=== PATIENT | male | born 1955 ===

== ENCOUNTER 2024-05-31 03:28 | Inpatient (IN) | payer OTHER ==
[2024-05-31 03:47] VITALS: BMI 27.1
[2024-05-31] MEDS ORDERED: VANCOMYCIN ONE (04:21)
[2024-05-31] MEDS ORDERED: PIPERACILLIN/TAZOB 3.375 GM 3.375 GM/50 ML BAG IVPB ONE (04:21)
[2024-05-31] MEDS ORDERED: ACETAMINOPHEN INJECTION 100 ML ONE (04:21)
[2024-05-31 04:58] LABS: BASO % 0.2 % (0-2.0); EOS % 0.2 % (0-4.5); HEMATOCRIT 32.7 % (35.4-49); HEMOGLOBIN 10.5 GM/dL (11.7-16.9); LYMPH % 14.2 % (8-40); MCH 31.7 pg (25.7-33.7); MCHC 32.3 g/dl (32.0-35.9); MEAN CELL VOLUME 98.1 fl (80-96); MEAN PLT VOLUME 7.6 fl (7.5-11.1); MONO % 8.3 % (3.8-10.2); NEUT % 77.1 % (42.8-82.8); PLATELET COUNT 362 10^3/uL (134-434); RBC 3.33 M/mm3 (4.00-5.60); RDW 16.1 % (11.9-15.9); WHITE BLOOD COUNT 10.4 K/mm3 (4.0-10.0)
[2024-05-31 04:59] LABS: VENOUS O2 SATURATION 80.8 % (70-80); VENOUS PCO2 40.1 mmHg (38-52); VENOUS PH 7.391 (7.310-7.410)
[2024-05-31] MEDS: ACETAMINOPHEN 1000 MG/100 ML BAG IVPB ONE ×2 (05:12→23:27)
[2024-05-31 05:22] LABS: POTASSIUM 3.9 mmol/L (3.5-5.1)
[2024-05-31 05:24] LABS: ALBUMIN 3.2 g/dl (3.4-5.0); BLOOD UREA NITROGEN 51.3 mg/dL (7-18); CALCIUM 9.2 mg/dL (8.5-10.1)
[2024-05-31 05:28] LABS: CREATININE 2.4 mg/dL (0.55-1.3)
[2024-05-31] MEDS: PIPERACILLIN/TAZOB 3.375 GM 3.375 GM in DEXTROSE 5%-WATER - 50 ML IVPB ONE (05:28)
[2024-05-31 05:29] LABS: TOT PROT 8.6 g/dl (6.4-8.2)
[2024-05-31 05:32] LABS: N-TERMINAL BNP 474.4 pg/ml (5-125)
[2024-05-31 05:36] LABS: BILIRUBIN,TOTAL 0.8 mg/dL (0.2-1)
[2024-05-31 05:40] LABS: INR 1.4 (0.83-1.09); PROTHROMBIN TIME (PATIENT) 15.9 SEC (9.7-13.0)
[2024-05-31 05:43] LABS: ACTIVATED PTT 30.4 SECONDS (25.2-36.5)
[2024-05-31] MEDS: VANCOMYCIN 1,000 MG in DEXTROSE 5%-WATER - 250 ML IVPB ONE (07:30)
[2024-05-31] MEDS ORDERED: VANCOMYCIN 1 GM PREMIX (F) 1 GM/200 ML BAG ONE (07:35)
[2024-05-31] MEDS ORDERED: MORPHINE SULFATE 2 MG/ML SYRINGE ONE (08:28)
[2024-05-31] MEDS: morphine CARPU-JECT 2 MG/1 ML DISP.SYRIN IVPUSH ONE (08:31)
[2024-05-31 08:33] LABS: URINE APPEARANCE TURBID; URINE BILIRUBIN NEGATIVE (NEGATIVE); URINE COLOR ORANGE; URINE GLUCOSE (UA) NEGATIVE (NEGATIVE); URINE KETONE TRACE (NEGATIVE); URINE LEUK ESTERASE 2+ (NEGATIVE); URINE NITRITE NEGATIVE (NEGATIVE); URINE PROTEIN 3+ (NEGATIVE)
[2024-05-31 09:21] LABS: EPI CELLS 20 /uL (0-25.1); HYALINE CASTS 7 /uL (0-3.1); URINE BACTERIA 33 /uL (0-1359); URINE CRYSTALS NONE SEEN /hpf; URINE RBC 1200 /uL (0-23.9); URINE WBC 440 /uL (0-25.8)
[2024-05-31 09:22] LABS: YEAST PRESENT (NEGATIVE)
[2024-05-31] MEDS: LACTATED RINGERS SOLUTION 1,000 ML/1,000 ML INFUS.BAG IV SCH ×2 (13:50→14:21)
[2024-05-31] MEDS: HEPARIN NA (PORCINE) 5,000 UNITS/ML 1ML VIAL SQ SCH (13:50)
[2024-05-31] MEDS: LIDOCAINE 4% PATCH TP SCH (13:51)
[2024-05-31] MEDS: METOPROLOL TARTRATE 5 MG/5 ML VIAL IVPUSH PRN (13:58)
[2024-05-31] MEDS: METOPROLOL TARTRATE 25 MG TABLET (FP) PO SCH (14:21)
[2024-05-31] MEDS: SODIUM CHLORIDE 500 ML IV STA (14:22)
[2024-05-31] MEDS: PIPERACILLIN/TAZOB 3.375 GM 50 ML IVPB SCH (17:46)
[2024-05-31] MEDS ORDERED: PIPERACILLIN IVPB SCH (18:00)
[2024-05-31] MEDS ORDERED: TAZOB IVPB SCH (18:00)
[2024-05-31] MEDS: OSELTAMIVIR PHOSPHATE 75 MG CAPSULE PO SCH (20:06)
[2024-05-31] MEDS: DOCUSATE SODIUM 100 MG CAPSULE (FP) PO SCH (21:15)
[2024-05-31] MEDS: LIDOCAINE PATCH REMOVAL MC SCH (21:15)
[2024-05-31] MEDS ORDERED: ZOLPIDEM TARTRATE 5 MG TABLET PO PRN (22:00)
[2024-05-31] MEDS ORDERED: APIXABAN 5 MG TABLET PO SCH (22:00)
[2024-06-01] MEDS: METOPROLOL TARTRATE 5 MG/5 ML VIAL IVPUSH ONE
[2024-06-01 08:11] LABS: BASO % 0.4 % (0-2.0); EOS % 0.1 % (0-4.5); HEMATOCRIT 31.9 % (35.4-49); HEMOGLOBIN 10.3 GM/dL (11.7-16.9); LYMPH % 17.2 % (8-40); MCHC 32.3 g/dl (32.0-35.9); MEAN CELL VOLUME 99.2 fl (80-96); MEAN PLT VOLUME 7.8 fl (7.5-11.1); MONO % 8.4 % (3.8-10.2); NEUT % 73.9 % (42.8-82.8); PLATELET COUNT 407 10^3/uL (134-434); RBC 3.22 M/mm3 (4.00-5.60); WHITE BLOOD COUNT 10.9 K/mm3 (4.0-10.0)
[2024-06-01] MEDS: morphine CARPU-JECT 4 MG/1 ML DISP.SYRIN IVPUSH ONE ×2 (08:12→08:25)
[2024-06-01] MEDS: NITROGLYCERIN 2% OINTMENT - 1GM PACKET TD ONE (08:12)
[2024-06-01 08:32] LABS: POTASSIUM 3.8 mmol/L (3.5-5.1)
[2024-06-01 08:39] LABS: BLOOD UREA NITROGEN 56.5 mg/dL (7-18); CALCIUM 9.3 mg/dL (8.5-10.1)
[2024-06-01 08:43] LABS: CREATININE 2.1 mg/dL (0.55-1.3)
[2024-06-01] MEDS: ACETAMINOPHEN 500 MG TABLET (FP) PO PRN (09:46)
[2024-06-01] MEDS: ASPIRIN COATED 81 MG TABLET.EC PO SCH (09:47)
[2024-06-01] MEDS: DULoxetine HCL 30 MG CAPSULE.DR PO SCH (09:47)
[2024-06-01] MEDS: TAMSULOSIN HCL 0.4 MG CAP PO SCH (09:47)
[2024-06-01] MEDS: APIXABAN 5 MG TABLET PO SCH (12:57)
[2024-06-01] MEDS: SILVER SULFADIAZINE 1% TOP CREAM 400 GM JAR TP SCH (12:58)
[2024-06-01] MEDS ORDERED: MIRTAZAPINE 15 MG TABLET (FP) PO SCH (22:00)
[2024-06-01] MEDS: PIPERACILLIN/TAZOB 4.5 GM 4.5 GM/100 ML BAG IVPB SCH (22:40)
[2024-06-01] MEDS: LIDOCAINE PATCH REMOVAL MC SCH (22:40)
[2024-06-02 08:01] LABS: HEMATOCRIT 30.8 % (35.4-49); HEMOGLOBIN 9.9 GM/dL (11.7-16.9); MCHC 32.3 g/dl (32.0-35.9); MEAN PLT VOLUME 7.5 fl (7.5-11.1); PLATELET COUNT 363 10^3/uL (134-434); RBC 3.11 M/mm3 (4.00-5.60); RDW 16.1 % (11.9-15.9); WHITE BLOOD COUNT 10.3 K/mm3 (4.0-10.0)
[2024-06-02 08:17] LABS: POTASSIUM 3.6 mmol/L (3.5-5.1)
[2024-06-02 08:20] LABS: CALCIUM 9.3 mg/dL (8.5-10.1)
[2024-06-02 08:21] LABS: BLOOD UREA NITROGEN 51.3 mg/dL (7-18); MAGNESIUM 1.9 mg/dL (1.8-2.4)
[2024-06-02 08:23] LABS: CREATININE 1.7 mg/dL (0.55-1.3); PHOSPHOROUS 3.9 mg/dL (2.5-4.9)
[2024-06-02 08:26] LABS: BILIRUBIN,TOTAL 0.7 mg/dL (0.2-1); TOT PROT 7.7 g/dl (6.4-8.2)
[2024-06-02] MEDS: DULoxetine HCL 30 MG CAPSULE.DR PO SCH (09:28)
[2024-06-02] MEDS: TAMSULOSIN HCL 0.4 MG CAP PO SCH (09:29)
[2024-06-02] MEDS: ASPIRIN COATED 81 MG TABLET.EC PO SCH (09:29)
[2024-06-02] MEDS ORDERED: DOXYCYCLINE INJECTION 100 MG in DEXTROSE 5%-WATER 100 ML IVPB SCH (10:00)
[2024-06-02] MEDS ORDERED: CEFTRIAXONE 1 GM in DEXTROSE 5%-WATER - 50 ML IVPB SCH (10:00)
[2024-06-02] MEDS: VANCOMYCIN 1 GM PREMIX (F) 1 GM/200 ML BAG IVPB ONE (12:15)
[2024-06-02] MEDS: ISOSORBIDE MONONITRATE 30 MG TAB.SR.24H (FP) PO SCH ×2 (14:54→22:12)
[2024-06-02] MEDS: METOPROLOL TARTRATE 5 MG/5 ML VIAL IVPUSH PRN (14:54)
[2024-06-02] MEDS: ATORVASTATIN CA 10 MG TABLET (FP) PO SCH (22:12)
[2024-06-02] MEDS: PANTOPRAZOLE 40 MG TABLET PO SCH (22:12)
[2024-06-03] MEDS: ACETAMINOPHEN 1000 MG/100 ML BAG IVPB ONE (02:33)
[2024-06-03 06:47] LABS: HEMATOCRIT 25.4 % (35.4-49); HEMOGLOBIN 8.2 GM/dL (11.7-16.9); MCH 32.2 pg (25.7-33.7); MCHC 32.4 g/dl (32.0-35.9); MEAN CELL VOLUME 99.4 fl (80-96); MEAN PLT VOLUME 7.8 fl (7.5-11.1); PLATELET COUNT 336 10^3/uL (134-434); RBC 2.56 M/mm3 (4.00-5.60); RDW 15.5 % (11.9-15.9); WHITE BLOOD COUNT 9.6 K/mm3 (4.0-10.0)
[2024-06-03 07:34] LABS: POTASSIUM 3.5 mmol/L (3.5-5.1)
[2024-06-03 07:39] LABS: ALBUMIN 2.5 g/dl (3.4-5.0)
[2024-06-03 07:40] LABS: BLOOD UREA NITROGEN 43.8 mg/dL (7-18); CALCIUM 8.7 mg/dL (8.5-10.1)
[2024-06-03 07:43] LABS: CREATININE 1.4 mg/dL (0.55-1.3)
[2024-06-03 07:44] LABS: BILIRUBIN,TOTAL 0.8 mg/dL (0.2-1); TOT PROT 6.6 g/dl (6.4-8.2)
[2024-06-03] MEDS: LACTATED RINGERS SOLUTION 1,000 ML/1,000 ML INFUS.BAG IV SCH (17:00)
[2024-06-03] MEDS: ACETAMINOPHEN 500 MG TABLET (FP) PO PRN (21:15)
[2024-06-03] MEDS: METOPROLOL TARTRATE 25 MG TABLET (FP) PO SCH (21:15)
[2024-06-04 07:21] LABS: HEMATOCRIT 26.8 % (35.4-49); HEMOGLOBIN 8.5 GM/dL (11.7-16.9); MCH 31.8 pg (25.7-33.7); MCHC 31.7 g/dl (32.0-35.9); MEAN CELL VOLUME 100.3 fl (80-96); MEAN PLT VOLUME 7.8 fl (7.5-11.1); PLATELET COUNT 343 10^3/uL (134-434); RBC 2.67 M/mm3 (4.00-5.60); RDW 15.7 % (11.9-15.9); WHITE BLOOD COUNT 7.8 K/mm3 (4.0-10.0)
[2024-06-04 07:39] LABS: POTASSIUM 3.5 mmol/L (3.5-5.1)
[2024-06-04 07:43] LABS: ALBUMIN 2.5 g/dl (3.4-5.0); CALCIUM 9.1 mg/dL (8.5-10.1)
[2024-06-04 07:44] LABS: BLOOD UREA NITROGEN 35.5 mg/dL (7-18); MAGNESIUM 1.5 mg/dL (1.8-2.4)
[2024-06-04 07:47] LABS: CREATININE 1.2 mg/dL (0.55-1.3)
[2024-06-04 07:48] LABS: BILIRUBIN,TOTAL 0.7 mg/dL (0.2-1); TOT PROT 6.6 g/dl (6.4-8.2)
[2024-06-04] MEDS: LIDOCAINE PATCH REMOVAL MC SCH (21:45)
[2024-06-05 07:33] LABS: HEMOGLOBIN 8.7 GM/dL (11.7-16.9); MCH 32.3 pg (25.7-33.7); MCHC 32.1 g/dl (32.0-35.9); MEAN CELL VOLUME 100.8 fl (80-96); MEAN PLT VOLUME 7.9 fl (7.5-11.1); PLATELET COUNT 315 10^3/uL (134-434); RBC 2.68 M/mm3 (4.00-5.60); RDW 15.4 % (11.9-15.9)
[2024-06-05 08:06] LABS: POTASSIUM 3.4 mmol/L (3.5-5.1)
[2024-06-05 08:29] LABS: CALCIUM 8.9 mg/dL (8.5-10.1)
[2024-06-05 08:30] LABS: ALBUMIN 2.6 g/dl (3.4-5.0); BLOOD UREA NITROGEN 29.2 mg/dL (7-18); MAGNESIUM 1.5 mg/dL (1.8-2.4)
[2024-06-05 08:34] LABS: BILIRUBIN,TOTAL 0.6 mg/dL (0.2-1); TOT PROT 6.7 g/dl (6.4-8.2)
[2024-06-05] MEDS: LIDOCAINE 5% TOPICAL PATCH TP SCH (10:35)
[2024-06-05] MEDS: MAGNESIUM SULF 50% (8.12 MEQ/2 ML-1 GM VIAL) IVPB ONE (21:38)
[2024-06-05] MEDS: POTASSIUM CHLORIDE TABS 20 MEQ TABLET.ER (FP) PO ONE (21:39)
[2024-06-06 07:20] LABS: HEMATOCRIT 27.9 % (35.4-49); HEMOGLOBIN 8.9 GM/dL (11.7-16.9); MCH 32.3 pg (25.7-33.7); MCHC 31.9 g/dl (32.0-35.9); MEAN CELL VOLUME 101.3 fl (80-96); MEAN PLT VOLUME 7.9 fl (7.5-11.1); PLATELET COUNT 298 10^3/uL (134-434); RBC 2.75 M/mm3 (4.00-5.60); RDW 15.7 % (11.9-15.9); WHITE BLOOD COUNT 6.8 K/mm3 (4.0-10.0)
[2024-06-06 07:41] LABS: POTASSIUM 3.5 mmol/L (3.5-5.1)
[2024-06-06 07:52] LABS: ALBUMIN 2.6 g/dl (3.4-5.0); BLOOD UREA NITROGEN 23.4 mg/dL (7-18); CALCIUM 9.3 mg/dL (8.5-10.1)
[2024-06-06 07:53] LABS: MAGNESIUM 1.6 mg/dL (1.8-2.4)
[2024-06-06 07:56] LABS: PHOSPHOROUS 2.3 mg/dL (2.5-4.9)
[2024-06-06 07:57] LABS: BILIRUBIN,TOTAL 0.6 mg/dL (0.2-1); TOT PROT 6.7 g/dl (6.4-8.2)
[2024-06-06] MEDS: hydrALAZINE HCL 20 MG/ML VIAL IVPUSH ONE (10:40)
[2024-06-06] MEDS: oxyCODONE HCL 5 MG TABLET PO PRN (17:22)
[2024-06-07 06:50] LABS: HEMATOCRIT 27.6 % (35.4-49); HEMOGLOBIN 8.8 GM/dL (11.7-16.9); MCH 31.8 pg (25.7-33.7); MEAN CELL VOLUME 99.3 fl (80-96); MEAN PLT VOLUME 8.6 fl (7.5-11.1); PLATELET COUNT 289 10^3/uL (134-434); RBC 2.77 M/mm3 (4.00-5.60); RDW 15.2 % (11.9-15.9); WHITE BLOOD COUNT 7.1 K/mm3 (4.0-10.0)
[2024-06-07 07:14] LABS: POTASSIUM 3.3 mmol/L (3.5-5.1)
[2024-06-07 07:16] LABS: BLOOD UREA NITROGEN 19.2 mg/dL (7-18); MAGNESIUM 1.5 mg/dL (1.8-2.4)
[2024-06-07 07:17] LABS: ALBUMIN 2.6 g/dl (3.4-5.0)
[2024-06-07 07:19] LABS: CREATININE 0.8 mg/dL (0.55-1.3)
[2024-06-07 07:20] LABS: PHOSPHOROUS 2.1 mg/dL (2.5-4.9)
[2024-06-07 07:21] LABS: BILIRUBIN,TOTAL 0.4 mg/dL (0.2-1); TOT PROT 6.7 g/dl (6.4-8.2)
[2024-06-07] MEDS: MAGNESIUM OXIDE 400 MG TABLET (FP) PO ONE (10:12)
[2024-06-07] MEDS: POTASSIUM PHOSPHATE 30 MM in SODIUM CHLORIDE 500 ML IVPB ONE (10:29)
[2024-06-07] MEDS: LISINOPRIL 5 MG TABLET PO SCH (10:29)
[2024-06-07] MEDS: oxyCODONE HCL 5 MG TABLET PO PRN (15:59)
[2024-06-07 18:42] VITALS: RESP 20
[2024-06-07 19:31] VITALS: BP 145/76
[2024-06-07 19:50] VITALS: TEMP 99.6
[2024-06-07 19:51] VITALS: PULSE 108
== END 2024-06-07 20:00 | DRG 720 ==
LOC: JER 03:28 → JERBED 09:16 → J2W 12:53
PROVIDERS: ADMIT Internal Medicine; ATTEND Internal Medicine
DX: A41.9 Sepsis, unspecified organism (principal); G93.41 Metabolic encephalopathy; I13.2 Hypertensive heart and chronic kidney disease with heart failure and with stage 5 chronic kidney disease, or end stage renal disease; J18.9 Pneumonia, unspecified organism; N18.6 End stage renal disease; E11.22 Type 2 diabetes mellitus with diabetic chronic kidney disease; I48.91 Unspecified atrial fibrillation; F03.90 Unspecified dementia, unspecified severity, without behavioral disturbance, psychotic disturbance, mood disturbance, and anxiety; I50.22 Chronic systolic (congestive) heart failure; E11.51 Type 2 diabetes mellitus with diabetic peripheral angiopathy without gangrene; L97.319 Non-pressure chronic ulcer of right ankle with unspecified severity; E03.9 Hypothyroidism, unspecified; E78.5 Hyperlipidemia, unspecified; E86.0 Dehydration; E87.6 Hypokalemia; F32.A Depression, unspecified; I25.10 Atherosclerotic heart disease of native coronary artery without angina pectoris; I73.9 Peripheral vascular disease, unspecified; J11.1 Influenza due to unidentified influenza virus with other respiratory manifestations; M94.0 Chondrocostal junction syndrome [Tietze]; N20.0 Calculus of kidney; R47.81 Slurred speech; Z99.2 Dependence on renal dialysis
CPT/HCPCS: 0241U-QW; 36415; 70450-TC; 71045-TC-FY; 71250-TC; 73030-TC-LT-FY; 74176-TC; 76705-TC; 80048; 80053; 81003; 82803; 82962; 83605; 83735; 83880; 84100; 84439; 84443; 84484; 85025; 85027; 85610; 85730; 87040; 87077; 87086; 87481; 93005; 93010; 99285-25; G0480; J0131; J1644

== ENCOUNTER 2024-07-18 16:17 | Inpatient (IN) | payer OTHER ==
[2024-07-18 17:21] LABS: VENOUS O2 SATURATION 40.4 % (70-80); VENOUS PCO2 45.4 mmHg (38-52); VENOUS PH 7.202 (7.310-7.410)
[2024-07-18 17:29] LABS: BASO % 0.6 % (0-2.0); HEMATOCRIT 28.9 % (35.4-49); HEMOGLOBIN 8.6 GM/dL (11.7-16.9); LYMPH % 2.5 % (8-40); MCH 28.9 pg (25.7-33.7); MCHC 29.9 g/dl (32.0-35.9); MEAN CELL VOLUME 96.6 fl (80-96); MEAN PLT VOLUME 9.6 fl (7.5-11.1); MONO % 4.5 % (3.8-10.2); NEUT % 92.4 % (42.8-82.8); PLATELET COUNT 263 10^3/uL (134-434); RBC 2.99 M/mm3 (4.00-5.60); RDW 16.4 % (11.9-15.9); WHITE BLOOD COUNT 17.3 K/mm3 (4.0-10.0)
[2024-07-18 17:56] LABS: LACTIC ACID 3.4 mmol/L (0.4-2.0)
[2024-07-18 17:58] LABS: POTASSIUM 3.8 mmol/L (3.5-5.1)
[2024-07-18] MEDS ORDERED: PIPERACILLIN/TAZOB 3.375 GM 3.375 GM/50 ML BAG IVPB ONE (17:59)
[2024-07-18 18:00] LABS: CALCIUM 8.7 mg/dL (8.5-10.1)
[2024-07-18 18:01] LABS: ALBUMIN 2.2 g/dl (3.4-5.0); BLOOD UREA NITROGEN 89.5 mg/dL (7-18)
[2024-07-18 18:04] LABS: CREATININE 3.7 mg/dL (0.55-1.3)
[2024-07-18 18:05] LABS: BILIRUBIN,TOTAL 0.4 mg/dL (0.2-1); TOT PROT 7.1 g/dl (6.4-8.2)
[2024-07-18] MEDS: SODIUM CHLORIDE 1,000 ML IV STA ×2 (18:06→21:07)
[2024-07-18] MEDS: PIPERACILLIN/TAZOB 3.375 GM 3.375 GM in DEXTROSE 5%-WATER - 50 ML IVPB ONE (18:06)
[2024-07-18 18:09] LABS: INR 2.99 (0.83-1.09); PROTHROMBIN TIME (PATIENT) 32.9 SEC (9.7-13.0)
[2024-07-18 18:14] LABS: ANISOCYTOSIS 1+; MACROCYTOSIS 0; OVALOCYTE 1+
[2024-07-18 18:25] LABS: ERYTHROCYTE SEDIMENTATION RATE 116 mm/hr (0-20)
[2024-07-18] MEDS ORDERED: ACETAMINOPHEN INJECTION 100 ML ONE (18:54)
[2024-07-18] MEDS ORDERED: VANCOMYCIN 1 GM PREMIX (F) 1 GM/200 ML BAG ONE (18:56)
[2024-07-18] MEDS: ACETAMINOPHEN 1000 MG/100 ML BAG IVPB ONE (19:00)
[2024-07-18 19:50] LABS: LACTIC ACID 2.6 mmol/L (0.4-2.0)
[2024-07-18] MEDS: VANCOMYCIN 1,000 MG in DEXTROSE 5%-WATER - 250 ML IVPB ONE (19:50)
[2024-07-18 21:10] LABS: ALLENS TEST POSITIVE; ARTERIAL BLD GAS O2 SATURATION 98.4 % (95-98); ARTERIAL BLOOD GAS BASE EXCESS -11.6 mmol/L (-2-2); ARTERIAL BLOOD GAS pH 7.259 (7.350-7.450)
[2024-07-18] MEDS: MUPIROCIN 2% TOPICAL OINTMENT FOR DECOLONIZATION NS SCH (23:00)
[2024-07-18] MEDS: CHLORHEXIDINE GLUCONATE 4% CLEANSER FOR DECOLONIZATION TP SCH (23:00)
[2024-07-18] MEDS: HEPARIN NA (PORCINE) 5,000 UNITS/ML 1ML VIAL SQ SCH (23:00)
[2024-07-18] MEDS: INSULIN ASPART SLIDING SCALE (NOVOLOG) 1 VIAL SQ SCH (23:00)
[2024-07-18 23:38] LABS: EPI CELLS 27 /uL (0-25.1); HYALINE CASTS 3 /uL (0-3.1); URINE APPEARANCE TURBID; URINE BILIRUBIN NEGATIVE (NEGATIVE); URINE COLOR DK YELLOW; URINE GLUCOSE (UA) TRACE (NEGATIVE); URINE KETONE NEGATIVE (NEGATIVE); URINE LEUK ESTERASE 2+ (NEGATIVE); URINE NITRITE NEGATIVE (NEGATIVE); URINE PROTEIN 2+ (NEGATIVE); URINE UROBILINOGEN 0.2 mg/dL (0.2-1.0); URINE WBC 162 /uL (0-25.8)
[2024-07-18 23:39] LABS: URINE RBC 1062.3 /uL (0-23.9)
[2024-07-19] MEDS: PIPERACILLIN/TAZOB 2.25 GM 2.25 GM/50 ML BAG IVPB SCH (02:19)
[2024-07-19] MEDS ORDERED: PIPERACILLIN/TAZOB 2.25 GM 2.25 GM in DEXTROSE 5%-WATER - 50 ML IVPB SCH (03:00)
[2024-07-19 07:33] LABS: BASO % 0.4 % (0-2.0); HEMATOCRIT 27.3 % (35.4-49); HEMOGLOBIN 8.3 GM/dL (11.7-16.9); LYMPH % 5.2 % (8-40); MCH 29.3 pg (25.7-33.7); MCHC 30.5 g/dl (32.0-35.9); MEAN PLT VOLUME 9.6 fl (7.5-11.1); MONO % 4.3 % (3.8-10.2); NEUT % 90.1 % (42.8-82.8); PLATELET COUNT 258 10^3/uL (134-434); RBC 2.84 M/mm3 (4.00-5.60); RDW 16.1 % (11.9-15.9); WHITE BLOOD COUNT 17.6 K/mm3 (4.0-10.0)
[2024-07-19 08:10] LABS: CHLORIDE 132 mmol/L (98-107); POTASSIUM 3.9 mmol/L (3.5-5.1); SODIUM 160 mmol/L (136-145)
[2024-07-19 08:12] LABS: CALCIUM 8.6 mg/dL (8.5-10.1)
[2024-07-19 08:13] LABS: ALBUMIN 2.1 g/dl (3.4-5.0); ANION GAP 10 mmol/L (4-13); CO2 18 mmol/L (21-32); GLUCOSE,RANDOM 350 mg/dL (74-106); MAGNESIUM 2.4 mg/dL (1.8-2.4)
[2024-07-19 08:16] LABS: PHOSPHOROUS 5.1 mg/dL (2.5-4.9); SGOT/AST 20 U/L (15-37); SGPT/ALT 17 U/L (13-61)
[2024-07-19 08:17] LABS: BILIRUBIN,TOTAL 0.4 mg/dL (0.2-1); TOT PROT 6.8 g/dl (6.4-8.2)
[2024-07-19 08:18] LABS: ALK PHOS 60 U/L (45-117)
[2024-07-19 08:35] LABS: BLOOD UREA NITROGEN 106.6 mg/dL (7-18)
[2024-07-19 08:40] LABS: INR 2.47 (0.83-1.09); PROTHROMBIN TIME (PATIENT) 26.9 SEC (9.7-13.0)
[2024-07-19 08:43] LABS: ACTIVATED PTT 37.3 SECONDS (25.2-36.5)
[2024-07-19] MEDS ORDERED: EPOETIN ALFA-EPBX 10,000 UNIT/ML VIAL SQ ONE (12:37)
[2024-07-19] MEDS ORDERED: SODIUM CHLORIDE 250 ML IV PRN (12:37)
[2024-07-19] MEDS ORDERED: SODIUM CHLORIDE 0.45% 1,000 ML IV SCH (12:45)
[2024-07-19] MEDS: SODIUM CHLORIDE 0.45% 1,000 ML IV SCH (14:07)
[2024-07-19] MEDS ORDERED: LIDOCAINE HCL 1%, 10 MG/ML (20ML VIAL) ONE (15:14)
[2024-07-19] MEDS: AMINO ACIDS/PROTEIN HYDROLYS 30 ML LIQUID.PKT PO SCH (18:39)
[2024-07-19] MEDS: ACETAMINOPHEN 1000 MG/100 ML BAG IVPB PRN (19:59)
[2024-07-20] MEDS: PIPERACILLIN/TAZOB 2.25 GM 2.25 GM/50 ML BAG IVPB SCH (01:23)
[2024-07-20 07:52] LABS: CHLORIDE 132 mmol/L (98-107); POTASSIUM 3.9 mmol/L (3.5-5.1); SODIUM 159 mmol/L (136-145)
[2024-07-20 07:53] LABS: CALCIUM 8.5 mg/dL (8.5-10.1)
[2024-07-20 07:54] LABS: ANION GAP 11 mmol/L (4-13); CO2 16 mmol/L (21-32)
[2024-07-20 07:55] LABS: ALBUMIN 2.1 g/dl (3.4-5.0); GLUCOSE,RANDOM 218 mg/dL (74-106); MAGNESIUM 2.2 mg/dL (1.8-2.4)
[2024-07-20 07:58] LABS: CREATININE 3.9 mg/dL (0.55-1.3); PHOSPHOROUS 4.4 mg/dL (2.5-4.9); SGOT/AST 15 U/L (15-37)
[2024-07-20 07:59] LABS: BILIRUBIN,TOTAL 0.4 mg/dL (0.2-1); BLOOD UREA NITROGEN 109.3 mg/dL (7-18); SGPT/ALT 13 U/L (13-61); TOT PROT 6.6 g/dl (6.4-8.2)
[2024-07-20 08:01] LABS: ALK PHOS 65 U/L (45-117)
[2024-07-20 08:08] LABS: HEMATOCRIT 26.4 % (35.4-49); MCH 29.1 pg (25.7-33.7); MCHC 30.3 g/dl (32.0-35.9); MEAN PLT VOLUME 10.2 fl (7.5-11.1); PLATELET COUNT 271 10^3/uL (134-434); RBC 2.75 M/mm3 (4.00-5.60); RDW 16.3 % (11.9-15.9); WHITE BLOOD COUNT 20.6 K/mm3 (4.0-10.0)
[2024-07-20 10:25] LABS: ANISOCYTOSIS 0; HELMET CELLS 0; HOWELL-JOLLY BODIES 0; MACROCYTOSIS 0; OVALOCYTE 0; ROULEAU 0; SICKELED CELLS 0; TARGET CELLS 0; TEAR DROP CELLS 0; TOXIC GRANULATION 0
[2024-07-20] MEDS: VITAMIN B COMP W-C 1 EA TABLET (NEPHRO-VITE) PO SCH (10:50)
[2024-07-20] MEDS: DEXTROSE 5%-WATER - 1,000 ML IV SCH (22:46)
[2024-07-20] MEDS ORDERED: FUROSEMIDE 40 MG/4 ML INJECTABLE VIAL ONE (22:47)
[2024-07-20] MEDS: FUROSEMIDE 100 MG/10 ML INJECTABLE VIAL IVPB ONE (23:48)
[2024-07-21] MEDS: DEXMEDETOMIDINE PREMIX 400 MCG/100 ML BAG IVPB SCH (05:24)
[2024-07-21 07:21] LABS: HEMATOCRIT 25.6 % (35.4-49); HEMOGLOBIN 7.9 GM/dL (11.7-16.9); MCHC 30.8 g/dl (32.0-35.9); MEAN CELL VOLUME 94.2 fl (80-96); MEAN PLT VOLUME 9.6 fl (7.5-11.1); PLATELET COUNT 298 10^3/uL (134-434); RBC 2.72 M/mm3 (4.00-5.60); RDW 15.3 % (11.9-15.9); WHITE BLOOD COUNT 21.5 K/mm3 (4.0-10.0)
[2024-07-21 07:36] LABS: CHLORIDE 130 mmol/L (98-107); POTASSIUM 3.3 mmol/L (3.5-5.1); SODIUM 156 mmol/L (136-145)
[2024-07-21 07:40] LABS: ANION GAP 6 mmol/L (4-13); CALCIUM 8.1 mg/dL (8.5-10.1); CO2 19 mmol/L (21-32); GLUCOSE,RANDOM 208 mg/dL (74-106); MAGNESIUM 1.9 mg/dL (1.8-2.4)
[2024-07-21 07:43] LABS: PHOSPHOROUS 5.1 mg/dL (2.5-4.9); SGOT/AST 10 U/L (15-37); SGPT/ALT 10 U/L (13-61)
[2024-07-21 07:45] LABS: BILIRUBIN,TOTAL 0.5 mg/dL (0.2-1); CREATININE 3.6 mg/dL (0.55-1.3)
[2024-07-21 07:47] LABS: ALK PHOS 71 U/L (45-117)
[2024-07-21 07:48] LABS: TOT PROT 6.2 g/dl (6.4-8.2)
[2024-07-21 08:10] LABS: BLOOD UREA NITROGEN 110.6 mg/dL (7-18)
[2024-07-21 09:43] LABS: ANISOCYTOSIS 1+; MACROCYTOSIS 1+
[2024-07-21] MEDS: KCL 10 MEQ IVPB 10 MEQ/100 ML INFUS.BAG IVPB SCH (09:59)
[2024-07-21] MEDS: MEROPENEM-0.9% SODIUM CHLORIDE 500 MG/50 ML BAG IVPB SCH ×2 (10:26→21:09)
[2024-07-21] MEDS: PNEUMOC 20-VAL CONJ-DIP CRM/PF 0.5 ML SYRINGE IM ONE (18:31)
[2024-07-21] MEDS ORDERED: MEROPENEM-0.9% SODIUM CHLORIDE 500 MG/50 ML BAG IVPB SCH (22:00)
[2024-07-22 07:54] LABS: BASO % 0.1 % (0-2.0); EOS % 2.5 % (0-4.5); HEMATOCRIT 23.7 % (35.4-49); HEMOGLOBIN 7.2 GM/dL (11.7-16.9); LYMPH % 3.5 % (8-40); MCH 28.3 pg (25.7-33.7); MCHC 30.6 g/dl (32.0-35.9); MEAN CELL VOLUME 92.7 fl (80-96); MEAN PLT VOLUME 9.9 fl (7.5-11.1); MONO % 3.1 % (3.8-10.2); NEUT % 90.8 % (42.8-82.8); PLATELET COUNT 324 10^3/uL (134-434); RBC 2.56 M/mm3 (4.00-5.60); RDW 15.8 % (11.9-15.9); WHITE BLOOD COUNT 19.8 K/mm3 (4.0-10.0)
[2024-07-22 08:15] LABS: CHLORIDE 127 mmol/L (98-107); POTASSIUM 3.5 mmol/L (3.5-5.1); SODIUM 154 mmol/L (136-145)
[2024-07-22 08:40] LABS: ALBUMIN 1.9 g/dl (3.4-5.0); ANION GAP 11 mmol/L (4-13); CO2 17 mmol/L (21-32); GLUCOSE,RANDOM 226 mg/dL (74-106); MAGNESIUM 1.7 mg/dL (1.8-2.4)
[2024-07-22 08:41] LABS: SGOT/AST 8 U/L (15-37); SGPT/ALT 7 U/L (13-61)
[2024-07-22 08:43] LABS: BILIRUBIN,TOTAL 0.4 mg/dL (0.2-1); BLOOD UREA NITROGEN 107.4 mg/dL (7-18); PHOSPHOROUS 4.6 mg/dL (2.5-4.9); TOT PROT 5.9 g/dl (6.4-8.2)
[2024-07-22 08:44] LABS: ALK PHOS 71 U/L (45-117)
[2024-07-22 08:46] LABS: CREATININE 3.2 mg/dL (0.55-1.3)
[2024-07-22] MEDS: MAGNESIUM SULF 50% (8.12 MEQ/2 ML-1 GM VIAL) IVPB ONE (09:50)
[2024-07-22] MEDS ORDERED: METOPROLOL TARTRATE 5 MG/5 ML VIAL IVPUSH PRN (12:21)
[2024-07-22] MEDS: METOPROLOL TARTRATE 5 MG/5 ML VIAL IVPUSH PRN (13:59)
[2024-07-22] MEDS: ACETAMINOPHEN 1000 MG/100 ML BAG IVPB PRN (14:05)
[2024-07-22] MEDS ORDERED: FUROSEMIDE 40 MG/4 ML INJECTABLE VIAL ONE (14:11)
[2024-07-22] MEDS: FUROSEMIDE 40 MG/4 ML INJECTABLE VIAL IVPUSH ONE (14:12)
[2024-07-22 16:16] VITALS: BMI 22.4
[2024-07-22] MEDS: DEXMEDETOMIDINE PREMIX 400 MCG/100 ML BAG IVPB SCH (16:30)
[2024-07-22] MEDS ORDERED: INSULIN ASPART SLIDING SCALE (NOVOLOG) 1 VIAL SQ ONE (20:17)
[2024-07-23 07:20] LABS: ARTERIAL BLOOD GAS pH 7.333 (7.350-7.450)
[2024-07-23 07:21] LABS: ARTERIAL BLD GAS O2 SATURATION 96.7 % (95-98); ARTERIAL BLOOD GAS PO2 93.1 mmHg (80-100)
[2024-07-23 07:24] LABS: ALLENS TEST POSITIVE
[2024-07-23 07:28] LABS: HEMATOCRIT 23.6 % (35.4-49); HEMOGLOBIN 7.4 GM/dL (11.7-16.9); MCH 29.3 pg (25.7-33.7); MCHC 31.5 g/dl (32.0-35.9); MEAN CELL VOLUME 93.2 fl (80-96); MEAN PLT VOLUME 9.7 fl (7.5-11.1); PLATELET COUNT 354 10^3/uL (134-434); RBC 2.53 M/mm3 (4.00-5.60); RDW 15.5 % (11.9-15.9); WHITE BLOOD COUNT 20.1 K/mm3 (4.0-10.0)
[2024-07-23] MEDS ORDERED: METOPROLOL TARTRATE 5 MG/5 ML VIAL IVPUSH SCH (07:30)
[2024-07-23 07:54] LABS: CHLORIDE 125 mmol/L (98-107); POTASSIUM 3.4 mmol/L (3.5-5.1); SODIUM 152 mmol/L (136-145)
[2024-07-23 07:56] LABS: CALCIUM 8.2 mg/dL (8.5-10.1)
[2024-07-23 07:57] LABS: ALBUMIN 1.8 g/dl (3.4-5.0); ANION GAP 8 mmol/L (4-13); CO2 19 mmol/L (21-32); GLUCOSE,RANDOM 232 mg/dL (74-106); MAGNESIUM 2.2 mg/dL (1.8-2.4)
[2024-07-23 08:00] LABS: CREATININE 3.1 mg/dL (0.55-1.3); SGOT/AST 13 U/L (15-37); SGPT/ALT 9 U/L (13-61)
[2024-07-23 08:02] LABS: BILIRUBIN,TOTAL 0.4 mg/dL (0.2-1)
[2024-07-23 08:03] LABS: ALK PHOS 79 U/L (45-117)
[2024-07-23 08:37] LABS: BLOOD UREA NITROGEN 109.5 mg/dL (7-18)
[2024-07-23] MEDS: METOPROLOL TARTRATE 5 MG/5 ML VIAL IVPUSH SCH (09:26)
[2024-07-23] MEDS: KCL 10 MEQ IVPB 10 MEQ/100 ML INFUS.BAG IVPB SCH (09:27)
[2024-07-23] MEDS ORDERED: ACETAMINOPHEN INJECTION 100 ML ONE (15:46)
[2024-07-23] MEDS: ACETAMINOPHEN 1000 MG/100 ML BAG IVPB ONE (15:50)
[2024-07-23] MEDS: METOPROLOL TARTRATE 5 MG/5 ML VIAL IVPUSH PRN (17:08)
[2024-07-23] MEDS ORDERED: hydrALAZINE HCL 20 MG/ML VIAL IVPUSH PRN (17:44)
[2024-07-23] MEDS: METOPROLOL TARTRATE 5 MG/5 ML VIAL IVPUSH ONE (18:10)
[2024-07-23] MEDS: DEXMEDETOMIDINE PREMIX 400 MCG/100 ML BAG IVPB SCH (18:35)
[2024-07-23] MEDS: ACETAMINOPHEN 1000 MG/100 ML BAG IVPB PRN (22:47)
[2024-07-24 01:34] LABS: POTASSIUM 3.3 mmol/L (3.5-5.1)
[2024-07-24 01:36] LABS: CALCIUM 8.2 mg/dL (8.5-10.1)
[2024-07-24 01:37] LABS: ALBUMIN 1.8 g/dl (3.4-5.0); BLOOD UREA NITROGEN 95.8 mg/dL (7-18); MAGNESIUM 2.4 mg/dL (1.8-2.4)
[2024-07-24 01:40] LABS: CREATININE 2.5 mg/dL (0.55-1.3); PHOSPHOROUS 4.8 mg/dL (2.5-4.9)
[2024-07-24 01:41] LABS: BILIRUBIN,TOTAL 0.2 mg/dL (0.2-1)
[2024-07-24 01:42] LABS: TOT PROT 5.9 g/dl (6.4-8.2)
[2024-07-24 07:29] LABS: HEMATOCRIT 23.7 % (35.4-49); HEMOGLOBIN 7.4 GM/dL (11.7-16.9); MCH 28.6 pg (25.7-33.7); MEAN CELL VOLUME 92.1 fl (80-96); MEAN PLT VOLUME 9.4 fl (7.5-11.1); PLATELET COUNT 445 10^3/uL (134-434); RBC 2.58 M/mm3 (4.00-5.60); WHITE BLOOD COUNT 17.9 K/mm3 (4.0-10.0)
[2024-07-24 07:41] LABS: CHLORIDE 122 mmol/L (98-107); POTASSIUM 3.3 mmol/L (3.5-5.1); SODIUM 149 mmol/L (136-145)
[2024-07-24 07:46] LABS: ALBUMIN 1.9 g/dl (3.4-5.0); CALCIUM 8.4 mg/dL (8.5-10.1)
[2024-07-24 07:47] LABS: ANION GAP 9 mmol/L (4-13); BLOOD UREA NITROGEN 95.4 mg/dL (7-18); CO2 19 mmol/L (21-32); GLUCOSE,RANDOM 197 mg/dL (74-106); MAGNESIUM 2.2 mg/dL (1.8-2.4)
[2024-07-24 07:49] LABS: SGPT/ALT < 6 U/L (13-61)
[2024-07-24 07:50] LABS: CREATININE 2.5 mg/dL (0.55-1.3); PHOSPHOROUS 4.7 mg/dL (2.5-4.9); SGOT/AST 12 U/L (15-37)
[2024-07-24 07:51] LABS: BILIRUBIN,TOTAL 0.5 mg/dL (0.2-1); TOT PROT 6.3 g/dl (6.4-8.2)
[2024-07-24 07:52] LABS: ALK PHOS 87 U/L (45-117)
[2024-07-24] MEDS ORDERED: METOPROLOL TARTRATE 5 MG/5 ML VIAL IVPUSH SCH (08:14)
[2024-07-24] MEDS ORDERED: FENTANYL PATCH WASTE TD PRN (09:35)
[2024-07-24] MEDS: METOPROLOL TARTRATE 5 MG/5 ML VIAL IVPUSH SCH (11:49)
[2024-07-24] MEDS: fentaNYL 25mcg/hr PATCH.TD72 TD SCH (11:51)
[2024-07-24] MEDS: DULoxetine HCL 30 MG CAPSULE.DR PO SCH (14:21)
[2024-07-24] MEDS: GABAPENTIN 100 MG CAPSULE PO SCH (14:23)
[2024-07-24] MEDS: KCL 10 MEQ IVPB 10 MEQ/100 ML INFUS.BAG IVPB SCH (14:31)
[2024-07-24] MEDS: MIRTAZAPINE 15 MG TABLET (FP) PO SCH (22:31)
[2024-07-25] MEDS: SCOPOLAMINE HYDROBROMIDE 1 PATCH PATCH.TD72 TD SCH (01:53)
[2024-07-25 07:34] LABS: HEMATOCRIT 22.3 % (35.4-49); HEMOGLOBIN 7.3 GM/dL (11.7-16.9); MCH 29.8 pg (25.7-33.7); MCHC 32.5 g/dl (32.0-35.9); MEAN CELL VOLUME 91.5 fl (80-96); MEAN PLT VOLUME 9.5 fl (7.5-11.1); PLATELET COUNT 505 10^3/uL (134-434); RBC 2.44 M/mm3 (4.00-5.60); RDW 15.9 % (11.9-15.9); WHITE BLOOD COUNT 17.2 K/mm3 (4.0-10.0)
[2024-07-25 07:49] LABS: CHLORIDE 128 mmol/L (98-107); POTASSIUM 3.8 mmol/L (3.5-5.1); SODIUM 155 mmol/L (136-145)
[2024-07-25 07:52] LABS: ANION GAP 9 mmol/L (4-13); BLOOD UREA NITROGEN 92.8 mg/dL (7-18); CO2 18 mmol/L (21-32); GLUCOSE,RANDOM 213 mg/dL (74-106); MAGNESIUM 2.1 mg/dL (1.8-2.4)
[2024-07-25 07:55] LABS: CREATININE 2.2 mg/dL (0.55-1.3); PHOSPHOROUS 4.9 mg/dL (2.5-4.9); SGOT/AST 10 U/L (15-37)
[2024-07-25 07:56] LABS: BILIRUBIN,TOTAL 0.4 mg/dL (0.2-1); TOT PROT 6.9 g/dl (6.4-8.2)
[2024-07-25 07:58] LABS: ALK PHOS 99 U/L (45-117)
[2024-07-25 08:11] LABS: SGPT/ALT < 6 U/L (13-61)
[2024-07-25] MEDS: DEXTROSE 5%-WATER - 1,000 ML IV SCH ×2 (10:09→17:01)
[2024-07-25] MEDS ORDERED: METOPROLOL TARTRATE 5 MG/5 ML VIAL IVPUSH PRN (15:30)
[2024-07-25] MEDS ORDERED: hydrALAZINE HCL 20 MG/ML VIAL IVPUSH PRN (15:30)
[2024-07-25] MEDS ORDERED: FENTANYL PATCH WASTE MC PRN (15:30)
[2024-07-25] MEDS ORDERED: FENTANYL PATCH WASTE TD PRN (15:30)
[2024-07-25] MEDS: AMINO ACIDS 4.25%/D5W 1,000 ML IV SCH (17:01)
[2024-07-25] MEDS: METOPROLOL TARTRATE 5 MG/5 ML VIAL IVPUSH SCH (17:05)
[2024-07-25] MEDS: INSULIN ASPART SLIDING SCALE (NOVOLOG) 1 VIAL SQ SCH (18:08)
[2024-07-25] MEDS: AMINO ACIDS/PROTEIN HYDROLYS 30 ML LIQUID.PKT PO SCH (18:16)
[2024-07-25] MEDS: MEROPENEM-0.9% SODIUM CHLORIDE 500 MG/50 ML BAG IVPB SCH (22:14)
[2024-07-25] MEDS: HEPARIN NA (PORCINE) 5,000 UNITS/ML 1ML VIAL SQ SCH (22:15)
[2024-07-26] MEDS: VITAMIN B COMP W-C 1 EA TABLET (NEPHRO-VITE) PO SCH (10:40)
[2024-07-26 19:14] LABS: CHLORIDE 135 mmol/L (98-107); POTASSIUM 3.4 mmol/L (3.5-5.1)
[2024-07-26 19:16] LABS: ALBUMIN 1.9 g/dl (3.4-5.0); BLOOD UREA NITROGEN 91.3 mg/dL (7-18); CALCIUM 9.2 mg/dL (8.5-10.1); CO2 19 mmol/L (21-32); GLUCOSE,RANDOM 294 mg/dL (74-106)
[2024-07-26 19:19] LABS: CREATININE 1.8 mg/dL (0.55-1.3); SGOT/AST 12 U/L (15-37); SGPT/ALT < 6 U/L (13-61)
[2024-07-26 19:21] LABS: BILIRUBIN,TOTAL 0.3 mg/dL (0.2-1); TOT PROT 6.9 g/dl (6.4-8.2)
[2024-07-26 19:22] LABS: ALK PHOS 92 U/L (45-117)
[2024-07-26 19:25] LABS: ANION GAP 8 mmol/L (4-13); SODIUM 161 mmol/L (136-145)
[2024-07-26] MEDS: SODIUM CHLORIDE 0.45% 1,000 ML IV SCH (20:27)
[2024-07-26] MEDS: MEROPENEM-0.9% SODIUM CHLORIDE 1 GM/50 ML BAG IVPB SCH (21:45)
[2024-07-27 04:26] LABS: CHLORIDE 138 mmol/L (98-107); POTASSIUM 3.2 mmol/L (3.5-5.1)
[2024-07-27 04:28] LABS: CALCIUM 8.6 mg/dL (8.5-10.1)
[2024-07-27 04:29] LABS: BLOOD UREA NITROGEN 86.2 mg/dL (7-18); CO2 19 mmol/L (21-32); GLUCOSE,RANDOM 224 mg/dL (74-106)
[2024-07-27 04:30] LABS: ANION GAP 6 mmol/L (4-13); SODIUM 163 mmol/L (136-145)
[2024-07-27 04:32] LABS: CREATININE 1.6 mg/dL (0.55-1.3)
[2024-07-27] MEDS: DEXTROSE 5%-WATER - 1,000 ML IV SCH ×2 (04:45→09:00)
[2024-07-27 09:17] LABS: CHLORIDE 136 mmol/L (98-107); POTASSIUM 3.2 mmol/L (3.5-5.1)
[2024-07-27 09:18] LABS: CALCIUM 9.1 mg/dL (8.5-10.1)
[2024-07-27 09:19] LABS: BLOOD UREA NITROGEN 89.9 mg/dL (7-18); CO2 21 mmol/L (21-32); GLUCOSE,RANDOM 248 mg/dL (74-106); MAGNESIUM 2.2 mg/dL (1.8-2.4)
[2024-07-27 09:22] LABS: CREATININE 1.8 mg/dL (0.55-1.3); PHOSPHOROUS 3.8 mg/dL (2.5-4.9)
[2024-07-27 09:26] LABS: ANION GAP 6 mmol/L (4-13); SODIUM 162 mmol/L (136-145)
[2024-07-27] MEDS: fentaNYL 25mcg/hr PATCH.TD72 TD SCH (10:00)
[2024-07-27] MEDS: INSULIN ASPART SLIDING SCALE (NOVOLOG) 1 VIAL SQ SCH (13:37)
[2024-07-27 13:44] VITALS: BP 90/46; PULSE 94
[2024-07-27 13:50] VITALS: RESP 12; TEMP 101.2
[2024-07-27] MEDS ORDERED: INSULIN (LEVEMIR) 100 UNITS/ML UNITS SQ SCH (22:00)
[2024-07-28] MEDS ORDERED: SCOPOLAMINE HYDROBROMIDE 1 PATCH PATCH.TD72 TD SCH (01:30)
== END 2024-07-27 01:48 | disposition expired | DRG 720 ==
LOC: JER 16:17 → JERBED 20:38 → JICU 21:46 → J4S 07-25 15:22
PROVIDERS: ADMIT Internal Medicine Pulmonary Disease; ATTEND Internal Medicine
PROC: 05HD33Z Insertion of Infusion Device into Right Cephalic Vein, Percutaneous Approach (ICD-10-PCS; principal; 2024-07-25)
PROC: B54MZZA Ultrasonography of Right Upper Extremity Veins, Guidance (ICD-10-PCS; 2024-07-25)
PROC: 5A1D70Z Performance of Urinary Filtration, Intermittent, Less than 6 Hours Per Day (ICD-10-PCS; 2024-07-25)
DX: A41.59 Other Gram-negative sepsis (principal); J96.01 Acute respiratory failure with hypoxia; E11.22 Type 2 diabetes mellitus with diabetic chronic kidney disease; N18.9 Chronic kidney disease, unspecified; I13.2 Hypertensive heart and chronic kidney disease with heart failure and with stage 5 chronic kidney disease, or end stage renal disease; N18.6 End stage renal disease; Z99.2 Dependence on renal dialysis; I25.10 Atherosclerotic heart disease of native coronary artery without angina pectoris; I50.22 Chronic systolic (congestive) heart failure; E03.9 Hypothyroidism, unspecified; J18.9 Pneumonia, unspecified organism; E87.20 Acidosis, unspecified; E78.5 Hyperlipidemia, unspecified; E87.0 Hyperosmolality and hypernatremia; E87.6 Hypokalemia; N17.9 Acute kidney failure, unspecified; I24.89 Other forms of acute ischemic heart disease; R13.10 Dysphagia, unspecified; D75.839 Thrombocytosis, unspecified; D64.9 Anemia, unspecified; E11.65 Type 2 diabetes mellitus with hyperglycemia; G92.8 Other toxic encephalopathy; R65.20 Severe sepsis without septic shock; E86.0 Dehydration
CPT/HCPCS: 0241U-QW; 36415; 36600; 71045-TC-FY; 74018-TC-FY; 80048; 80053; 81003; 82550; 82803; 82962; 83605; 83735; 83880; 84100; 84443; 84481; 84484; 85025; 85027; 85610; 85651; 85730; 86140; 86850; 86900; 86901; 87040; 87186; 87481; 90677; 93005; 93010; 94660; 99291; G0009; J0131; J1644